=== PATIENT | male | born 1975 | race Caucasian/White ===

== ENCOUNTER 2017-05-29 19:00 | Emergency (ER) | payer OTHER ==
[2017-05-29 19:33] VITALS: BMI 27.3
[2017-05-29 19:36] VITALS: RESP 18; TEMP 97.8
[2017-05-29] MEDS ORDERED: Tetracaine 0.5% Ophth 2 ML BOTTLE OD STA (20:19)
--- NOTE | 2017-05-29 20:47 | ED PDOC ---
Arrival/HPI - General Chief Complaint: Eye Problem Time Seen by Provider: 05/29/17 19:48 Historian: Patient - History of Present Illness Narrative History of Present Illness (Text): 05/29/17 20:49 Patient reports pain, redness and foreign body sensation of R eye since yesterday. Otherwise: (-) visual changes, (-) other injury, (-) contact lens. Denies any trauma. PMD Saleeb Past Medical History - Provider Review Nursing Documentation Reviewed: Yes - Infectious Disease Hx of Infectious Diseases: None - Tetanus Immunization Tetanus Immunization: Unknown - Past Medical History Past Medical History: No Previous - Cardiac Hx Cardiac Disorders: Yes Hx Atrial Fibrillation: Yes Hx Hypertension: Yes - Pulmonary Hx Respiratory Disorders: No - Neurological Hx Neurological Disorder: Yes Hx Migraine: Yes Other/Comment: head trauma with R thalamic infarct (2005) - HEENT Hx HEENT Disorder: No - Renal Hx Renal Disorder: No - Endocrine/Metabolic Hx Endocrine Disorders: No - Hematological/Oncological Hx Blood Transfusions: No - Integumentary Hx Dermatological Disorder: No - Musculoskeletal/Rheumatological Hx Musculoskeletal Disorders: No Hx Falls: No - Gastrointestinal Hx Gastrointestinal Disorders: No - Genitourinary/Gynecological Hx Genitourinary Disorders: No - Psychiatric Hx Depression: No Hx Emotional Abuse: No Hx Physical Abuse: No Hx Substance Use: No - Past Surgical History Past Surgical History: No Previous - Surgical History Hx Cardiac Catheterization: Yes (08/19/16) - Anesthesia Hx Anesthesia: No - Suicidal Assessment Feels Threatened In Home Enviroment: No Family/Social History - Physician Review Nursing Documentation Reviewed: Yes Family/Social History: No Known Family HX Smoking Status: Former Smoker Hx Alcohol Use: No Hx Substance Use: No Hx Substance Use Treatment: No Allergies/Home Meds Allergies/Adverse Reactions: Allergies No Known Allergies Allergy (Verified 05/29/17 19:33) Review of Systems - Review of Systems Constitutional: Normal. absent: Fatigue, Weight Change, Fevers Eyes: Normal, Photophobia, Eye Pain ENT: Normal. absent: Hearing Changes, Rhinorrhea, Sinus Congestion Respiratory: Normal. absent: SOB, Cough, Sputum Musculoskeletal: Normal. absent: Arthralgias, Back Pain, Neck Pain Skin: Normal. absent: Rash, Pruritis, Skin Lesions Physical Exam - Physical Exam Narrative Physical Exam (Text): 05/29/17 20:47 GENERAL APPEARANCE: Patient is awake, alert, oriented x 3, in moderate painful distress. HEENT: (-) facial swelling and erythema, (-) facial blisters. LIDS & LASHES: Normal. PUPILS: Pupils equal and reactive. EOM's: Intact. LID EVERSION: (-) foreign body. CONJUNCTIVAE: (+) injection. CORNEA: Embedded foreign body noted. ANTERIOR CHAMBER: (-) foreign body, (-) tear in iris, (-) hyphema. FUNDUSCOPIC: (-) foreign body, (-) hemorrhage. FLUORESCEIN: (+) uptake with (+) abrasion (-) Ollie test Vital Signs Temp Pulse Resp BP Pulse Ox 05/29/17 21:16 67 18 121/74 99 05/29/17 19:36 97.8 F 69 18 114/71 97 Medical Decision Making ED Course and Treatment: 05/29/17 20:45 42-year-old male complains of redness, pain and foreign body sensation to the right eye since yesterday. Reports no loss of vision. On exam, patient noted to have foreign body to the cornea with an abrasion. Foreign body on the cornea was removed using a Q-tip by ROBYN. Patient was medicated with tobramycin eye drops and tetanus. Given strict instructions to follow-up with ophthalmology without fail in 2 days. Patient states he fully agrees with and understands discharge instructions. States that he agrees with the plan and disposition. Verbalized and repeated discharge instructions and plan. I have given the patient opportunity to ask any additional questions. Follow up with ophthalmology in 1-2 days without fail. Advised to take medication as prescribed. Return to the emergency room at any time for any new or worsening symptoms. - Medication Orders Current Medication Orders: Discontinued Medications Tetanus/Reduced Diphtheria/Acell Pertussis (Boostrix Vaccine Inj) 0.5 ml IM .ONCE ONE Stop: 05/29/17 20:52 Last Admin: 05/29/17 21:06 Dose: 0.5 ml Tetracaine HCl (Tetracaine 0.5% Ophth Soln) 1 drop OD STAT STA Stop: 05/29/17 20:20 Last Admin: 05/29/17 21:07 Dose: 1 drop Comments: Administered by ROBYN Yarbrough - ROBYN / TOOL PUSHER / Resident Statement /DO has reviewed & agrees with the documentation as recorded. Disposition/Present on Arrival - Present on Arrival Any Indicators Present on Arrival: No History of DVT/PE: No History of Uncontrolled Diabetes: No Urinary Catheter: No History of Decub. Ulcer: No History Surgical Site Infection Following: None - Disposition Have Diagnosis and Disposition been Completed?: Yes Diagnosis: Corneal abrasion, right, Corneal FB (foreign body) Disposition: HOME/ ROUTINE Disposition Time: 20:44 Patient Plan: Discharge Condition: STABLE Discharge Instructions (ExitCare): Corneal Abrasion (ED), Eye Foreign Body (ED ) Print Language: BENGALI Prescriptions: Ketorolac Tromethamine [Acular 0.5%] 1 drop OD QID #1 bottle Tobramycin 0.3% [Tobrex 0.3% Ophth Soln] 2 drop OD QID #1 bottle Referrals: Parag Agustin MD [Primary Care Provider] - Follow up with primary Kevin Davidson MD [Staff Provider] - Follow up with primary Forms: WORK NOTE
[2017-05-29] MEDS ORDERED: TDAP Vaccine 0.5 mL Syr IM ONE (20:51)
[2017-05-29 21:28] VITALS: BP 121/74; PULSE 67; O2SAT 99
== END 2017-05-29 21:16 | disposition home or self-care (01) ==
LOC: ED 19:00
DX: T15.01XA Foreign body in cornea, right eye, initial encounter (principal); X58.XXXA Exposure to other specified factors, initial encounter; Y93.89 Activity, other specified; Y92.410 Unspecified street and highway as the place of occurrence of the external cause; Z23 Encounter for immunization

== ENCOUNTER 2019-03-28 13:39 | Outpatient (CLI) | payer MEDICAID | END 2019-03-28 13:40 | disposition home or self-care (01) | LOC: CARDIO 13:39 ==